=== PATIENT | female | born 2000 | race Caucasian/White ===

== ENCOUNTER 2021-12-09 20:58 | Emergency (ER) | payer MEDICAID ==
[~2021-12-09] VITALS: Ht 154.9 cm; Wt 76.4 kg
[2021-12-09] MEDS ORDERED: AMOX-117 PO (22:54)
[2021-12-09] MEDS ORDERED: CARB15DR65 EACH EAR (22:54)
[2021-12-09] MEDS ORDERED: amox tr/potassium clavulanate 875/125mg TAB PO ONE (22:55)
[2021-12-09] MEDS ORDERED: ibuprofen tablet 400 MG TABLET PO ONE (22:55)
[2021-12-09 23:22] VITALS: BP 118/87
== END 2021-12-09 23:22 | disposition home or self-care (01) ==
LOC: ER 20:59
DX: H61.21 Impacted cerumen, right ear (principal); Z79.899 Other long term (current) drug therapy
CPT/HCPCS: 99283

== ENCOUNTER 2022-12-31 22:46 | Emergency (ER) | payer MEDICAID ==
[~2022-12-31] VITALS: Ht 154.9 cm; Wt 77.2 kg
[~2022-12-31 22:46] MED LIST: CARB15DR65 EACH EAR
[2022-12-31 23:59] LABS: CLARITY,URINE SLIGHTLY CLOUDY (Clear); COLOR,URINE YELLOW (Yellow); GLUCOSE, URINE NEGATIVE (Neg); KETONES,URINE NEGATIVE (Neg); LEUKOCYTE ESTERASE ,URINE TRACE (Neg); NITRITES, URINE POSITIVE (Neg); OCCULT BLOOD,URINE MODERATE (Neg); PROTEIN,URINE 30 mg/dl (Neg); URINE HCG NEGATIVE (NEG)
[2023-01-01] LABS: UA COLLECTION TYPE CLN CATCH MIDSTREAM
[2023-01-01 00:08] LABS: BACTERIA,URINE 4+ /HPF (Neg); MUCUS STRANDS FEW /LPF (Neg); RBC,URINE TNTC /HPF (0-2); SQUAMOUS EPITHELIAL CELL,UR FEW /LPF (FEW); TRANSITIONAL EPI CELLS,URINE FEW /HPF; WBC,URINE 20-30 /HPF (0-4)
[2023-01-01 00:09] LABS: WBC CLUMPS,URINE FEW /HPF (NEGATIVE)
[2023-01-01 00:10] LABS: AMORPHOUS URATES 1+
[2023-01-01 01:53] LABS: BASOPHILS # (AUTO) 0.1 X10'3 (0-0.2); BASOPHILS % (AUTO) 0.4 % (0-1); EOSINOPHILS # (AUTO) 0.3 X10'3 (0-0.9); EOSINOPHILS % (AUTO) 2.1 % (0-6); HEMATOCRIT 39.6 % (35.0-45.0); LYMPHOCYTES # (AUTO) 5.1 X10'3 (1.1-4.8); MEAN CORPUSCULAR HEMOGLOBIN 26.7 PG (27.0-31.0); MEAN CORPUSCULAR HGB CONC 32.8 g/dL (33.0-36.5); MEAN CORPUSCULAR VOLUME 81.4 FL (78-98); MEAN PLATELET VOLUME 8.5 FL (7.4-10.4); MONOCYTES % (AUTO) 7.9 % (2-12); NEUTROPHILS # (AUTO) 6.6 X10'3 (1.8-7.7); NEUTROPHILS % (AUTO) 50.6 % (42-75); PLATELET COUNT 317 X10'3 (140-440); RED BLOOD COUNT 4.86 X10'6 (4.20-5.60); RED CELL DISTRIBUTION WIDTH 14.2 % (11.5-14.5); WHITE BLOOD COUNT 13.1 X10'3 (4.5-11.0)
[2023-01-01] MEDS ORDERED: CEPH-585 PO (02:48)
[2023-01-01 03:24] VITALS: BP 115/78
== END 2023-01-01 03:26 | disposition home or self-care (01) ==
LOC: ER 22:47
DX: N93.9 Abnormal uterine and vaginal bleeding, unspecified (principal); N39.0 Urinary tract infection, site not specified; Z79.899 Other long term (current) drug therapy
CPT/HCPCS: 36415; 81001; 81003; 81025; 84702; 85025; 86885; 86900; 86901; 87088; 87186; 99283